=== PATIENT | female | born 1950 | race Caucasian/White ===

== ENCOUNTER 2017-10-08 14:50 | Emergency (ER) | payer MEDICARE, SELFPAY ==
[2017-10-08 14:51] VITALS: BP 157/80; PULSE 75; RESP 18; TEMP 36.4; O2SAT 99; BMI 34.1
--- NOTE | 2017-10-08 15:44 | ED.VISSUMM ---
- ER Visit Summary Date of Service: 10/08/17 Chief Complaint: I cannot hear out of my left ear History of Present Illness: The patient is a 67 F with 3 weeks of sinus drainage, rhinorrhea, and sinus pressure. 3 days ago she felt a pop in her right ear and has had decreased hearing since that time. No associated pain. No headaches, visual changes, slurred speech, or facial droop. She can still hear slightly from the right ear but it is markedly decreased from baseline. Physical Examination: Right tympanic membrane is somewhat bulging and there appears to be fluid behind it but I can still visualize landmarks. There is no mastoid tenderness. No evidence of cerumen impaction. She has a completely normal neurologic examination. Test Results: None performed Emergency Department Course and Treatment: Since she has had sinusitis symptoms for 3 weeks, I do think it is reasonable to treat her with an antimicrobial. I will also start her on a nasal spray. She was referred to ENT for close follow-up. This does not appear to represent an acute neurologic issue such as stroke or other acute process at this time. Treatment Plan: Oral antibiotics and nasal decongestant spray Disposition: Home stable condition Impression: Initial encounter maxillary sinusitis, initial encounter decreased hearing right ear This note was generated with [employer] dictation software. It may contain incorrect words, spelling, and punctuation that were not noted in review of the chart prior to signing ED Disposition - Plan for ED Patient: Chief Complaint: Ear Problem Instructions: Common Middle Ear Problems, Acute Sinusitis Prescriptions: Oxymetazoline 0.05% [Afrin (BKC)] 15 spray NASAL BID 3 Days #1 spray.btl Amoxicillin 500 mg PO TID #30 tablet Referrals: Donavan Gutierrez MD [STAFF PHYSICIAN] - As soon as possible
--- NOTE | 2017-10-08 15:49 | ED.DCSUM_ITS ---
- ER Visit Summary Date of Service: 10/08/17 Chief Complaint: I cannot hear out of my left ear History of Present Illness: The patient is a 67 F with 3 weeks of sinus drainage , rhinorrhea, and sinus pressure. 3 days ago she felt a pop in her right ear and has had decreased hearing since that time. No associated pain. No headaches, visual changes, slurred speech, or facial droop. She can still hear slightly from the right ear but it is markedly decreased from baseline. Physical Examination: Right tympanic membrane is somewhat bulging and there appears to be fluid behind it but I can still visualize landmarks. There is no mastoid tenderness. No evidence of cerumen impaction. She has a completely normal neurologic examination. Test Results: None performed Emergency Department Course and Treatment: Since she has had sinusitis symptoms for 3 weeks, I do think it is reasonable to treat her with an antimicrobial. I will also start her on a nasal spray. She was referred to ENT for close follow- up. This does not appear to represent an acute neurologic issue such as stroke or other acute process at this time. Treatment Plan: Oral antibiotics and nasal decongestant spray Disposition: Home stable condition Impression: Initial encounter maxillary sinusitis, initial encounter decreased hearing right ear This note was generated with [employer] dictation software. It may contain incorrect words, spelling, and punctuation that were not noted in review of the chart prior to signing ED Disposition - Plan for ED Patient: Chief Complaint: Ear Problem Instructions: Common Middle Ear Problems, Acute Sinusitis Prescriptions: Oxymetazoline 0.05% [Afrin (BKC)] 15 spray NASAL BID 3 Days #1 spray.btl Amoxicillin 500 mg PO TID #30 tablet Referrals: Donavan Gutierrez MD [STAFF PHYSICIAN] - As soon as possible
[2017-10-08 15:55] VITALS: BP 121/77; PULSE 61; RESP 15; O2SAT 98
== END 2017-10-08 15:57 | disposition home or self-care (01) ==
LOC: ED 15:50
PROVIDERS: Emergency Provider Emergency Medicine; Family Provider Family Medicine; PCP Family Medicine
DX: J32.0 Chronic maxillary sinusitis (principal); H91.92 Unspecified hearing loss, left ear; I10 Essential (primary) hypertension; Z79.84 Long term (current) use of oral hypoglycemic drugs; Z79.82 Long term (current) use of aspirin; Z79.899 Other long term (current) drug therapy; Z86.73 Personal history of transient ischemic attack (TIA), and cerebral infarction without residual deficits
CPT/HCPCS: 99282

== ENCOUNTER 2018-01-26 17:56 | Emergency (ER) | payer MEDICARE, SELFPAY ==
[2018-01-26 17:57] VITALS: BP 151/75; PULSE 93; RESP 18; TEMP 36.4; O2SAT 99; BMI 34.2
--- NOTE | 2018-01-26 18:44 | ED.VISSUMM ---
- ER Visit Summary Date of Service: 01/26/18 Chief Complaint: Sore throat History of Present Illness: The patient is a 68 F who presents with a sore throat. She has had this for 2 days. She has had associated sinus congestion. Throat is worse with swallowing. She states she has also had a cough is nonproductive. She denies fevers. She tried NyQuil which is not helping. Physical Examination: Vital signs are reviewed. HEENT exam reveals some posterior oropharyngeal erythema. There is no tonsillar swelling or exudates. No lymphadenopathy. He is regular rate and rhythm. Lungs clear to auscultation. Abdomen soft and nontender. Neurologic exam normal. Test Results: Strep negative Emergency Department Course and Treatment: Patient will be treated with Decadron here. Mucinex D for home. Likely viral in nature. We will follow-up with her PCP Treatment Plan: [] Disposition: Discharge Impression: Pharyngitis This note was generated with [employer] dictation software. It may contain incorrect words, spelling, and punctuation that were not noted in review of the chart prior to signing ED Disposition - Plan for ED Patient: Chief Complaint: Sore Throat Referrals: Dari Antunez [Primary Care Provider] -
--- NOTE | 2018-01-26 19:03 | ED.DEP ---
ED Disposition - Plan for ED Patient: Disposition: Home or Assisted Living Chief Complaint: Sore Throat Instructions: ED Pharyngitis Viral Prescriptions: Guaifenesin/Pseudoephedrne HCl [Mucinex D ER 1,200-120 mg Tab] 1 ea PO BID #14 tab.er.12h Referrals: Dari Antunez [Primary Care Provider] -
[2018-01-26 19:23] VITALS: BP 152/67; PULSE 69; RESP 17; O2SAT 98
== END 2018-01-26 19:25 | disposition home or self-care (01) ==
PROVIDERS: Emergency Provider Emergency Medicine; Family Provider Family Medicine; PCP Family Medicine
DX: J02.9 Acute pharyngitis, unspecified (principal); E11.9 Type 2 diabetes mellitus without complications; I10 Essential (primary) hypertension; Z79.84 Long term (current) use of oral hypoglycemic drugs; Z79.82 Long term (current) use of aspirin; Z79.899 Other long term (current) drug therapy; Z86.73 Personal history of transient ischemic attack (TIA), and cerebral infarction without residual deficits
CPT/HCPCS: 87880; 99283

== ENCOUNTER 2020-09-25 17:48 | Emergency (ER) | payer MEDICARE, SELFPAY ==
[2020-09-25 17:53] VITALS: BP 196/76; PULSE 77; PULSE 78; RESP 16; TEMP 35.5; O2SAT 97; BMI 36.3
--- NOTE | 2020-09-25 18:51 | EDS_ITS ---
HPI History of Present Illness Chief Complaint: Hypoglycemia Informant: patient and EMS Onset/Context/Timing Onset: Today Context: Gradual Onset Timing: - (Unclear) Quality: Fatigued Worsened by: Unknown Relieved by: Giving glucose by EMS Associated Symptoms Associated Symptoms: No other symptoms Narrative Narrative: Patient presents around 1800 to the ER, she states that she woke up early around 830 this morning, took her medications including her insulin for her diabetes and basically did not eat anything today, was feeling sleepy around 1130 or noon, and at some point was found difficult to arouse. EMS was called, checked her blood sugar it was very low, they gave her glucose and she woke up and now she feels fine except for being a little tired. Recent Illness/Hospitalization: No PFSH PFSH Medical History CVA (cerebral vascular accident) Diabetes Home Medications Antidepressant 1 07/15/16 [History Last Taken Unknown] Toujeo Solostar 50 units SQ DAILY 07/15/16 [History Last Taken 07/14/16] glimepiride 4 mg PO BID 07/15/16 [History Last Taken 07/14/16] krill oil 500 mg PO DAILY 07/15/16 [History Last Taken 07/14/16] metformin 500 mg PO BIDCM 07/15/16 [History Last Taken 07/14/16] aspirin 81 mg PO DAILY@0800 #30 tab.chew 07/16/16 [Rx Last Taken Unknown] aripiprazole 10 mg PO DAILY 09/25/20 [History Last Taken Unknown] cephalexin 500 mg PO Q12 #14 capsule 09/25/20 [Rx Last Taken Unknown] citalopram 40 mg PO DAILY 09/25/20 [History Last Taken Unknown] escitalopram oxalate 20 mg PO DAILY 09/25/20 [History Last Taken Unknown] estradiol 0.5 mg PO DAILY 09/25/20 [History Last Taken Unknown] insulin aspart U-100 [Novolog U-100 Insulin aspart] unit SUBCUT TIDCM 09/25/20 [History Last Taken Unknown] lisinopril 5 mg PO DAILY 09/25/20 [History Last Taken Unknown] simvastatin 40 mg PO DAILY 09/25/20 [History Last Taken Unknown] Allergy/AdvReac Type Severity Reaction Status Date / Time theophylline [From Dharmesh-Dur] Allergy Chest Verified 09/25/20 17:51 tightness Social History Smoking Status: Former smoker ROS ROS ED Constitutional Constitutional ED: Reports fatigue; Denies chills or fever(s) Eyes Eyes: Denies change in vision or diplopia ENT ENT ED: Denies rhinorrhea or sore throat Cardiovascular Cardiovascular: Denies chest pain or palpitations Respiratory/Chest Respiratory/Chest: Denies cough or dyspnea Gastrointestinal Gastrointestinal: Denies abdominal pain, diarrhea, nausea or vomiting Genitourinary Genitourinary ED: Reports dysuria, urinary frequency and other Details: Above urinary symptoms for about the past month ; Denies hematuria Musculoskeletal Musculoskeletal: Denies back pain or neck pain Integumentary Denies abscess or rash Neurologic Neurologic: Denies headache(s), paresthesias or weakness Psychiatric Psychiatric: Denies anxiety or suicidal thoughts EXAM Physical Exam Const Vital Signs: 09/25/20 17:53 09/25/20 18:06 Temperature 95.9 F L Temperature Source Temporal Pulse Rate 77 Respiratory Rate 16 Respiratory Effort Normal Respiratory Pattern Normal Blood Pressure 196/76 H Blood Pressure Mean 116 Pulse Ox 97 Oxygen Delivery Method Room Air Positive well nourished and well developed General Appearance ED: well developed and NAD HEENT Reports moist mucous membranes normocephalic and atraumatic Eyes PERRL and EOMs intact bilaterally Neck full ROM and supple Resp normal respiratory effort and clear to auscultation bilaterally Cardio regular rate, regular rhythm and no murmurs GI non-tender and non-distended Auscultation: normoactive bowel sounds Palpation: soft Back/Spine no CVA tenderness General Back: other FROM Extremity normal to inspection General Extremety ED: Negative for edema, pulses abnormal or tenderness General Extremity: Negative for edema or pulses abnormal Neuro oriented x3, CN's II-XII intact bilaterally and no sensory deficits noted Sensorium / Orientation: awake and alert Gait (Neuro): normal gait Motor Exam: strength 5/5 throughout Psych mental status grossly normal and thought process normal Skin no rashes or lesions noted and no wounds MDM MDM MDM Narrative Medical decision making narrative: Patient was given ham sandwich, we recheck sugar couple times it was in the 200s, she is feeling better. She wanted us to check a urinalysis because she was having some symptoms, it only shows 5-10 w richard blood cells and very mildly positive for leukocyte esterase. I offered her an antibiotic she prefers to try 1 because she has not in the past month since she had the symptoms. I do not necessarily think it was related to her episode today, and certainly she is not septic. She has chronic renal failure, she states dialysis was recommended to her but she refuses to undergo it. Her renal function is not that much lower than her baseline, so I gave her 500 cc of IV fluid and she feels well enough to go home. Lab Data Attestation: I reviewed the patient's lab results. Labs: Laboratory Results - last 24 hr 09/25/20 09/25/20 09/25/20 17:35 17:35 19:04 WBC 6.9 RBC 4.78 Hgb 12.7 Hct 41.3 MCV 86.4 MCH 26.6 L MCHC 30.8 L RDW Std Deviation 44.6 H RDW Coeff of Arsen 14.1 Plt Count 259 MPV 10.3 Immature Gran % (Auto) 0.400 Neut % (Auto) 73.4 H Lymph % (Auto) 18.7 L [place] % (Auto) 4.9 Eos % (Auto) 2.2 Baso % (Auto) 0.4 Absolute Neuts (auto) 5.1 Absolute Lymphs (auto) 1.29 Nucleated RBC % 0 Sodium 140 Potassium 3.5 Chloride 104 Carbon Dioxide 25.0 Anion Gap 11 BUN 36 H Creatinine 2.03 H Estim Creat Clear Calc 22.87 Est GFR (MDRD) Af Amer 31 L Est GFR (MDRD) Non-Af 26 L BUN/Creatinine Ratio 17.7 Glucose 73 L Calcium 9.6 Urine Color Urine Clarity Urine pH Ur Specific [place] Urine Protein Urine Glucose (UA) Urine Ketones Urine Occult Blood Urine Nitrite Urine Bilirubin Urine Urobilinogen Ur Leukocyte Esterase Urine RBC Urine WBC Ur Squamous Epith Cells Urine Bacteria Urine Mucus POC Glucose 170 H 09/25/20 09/25/20 19:06 21:10 WBC RBC Hgb Hct MCV MCH MCHC RDW Std Deviation RDW Coeff of [place] Plt Count MPV Immature Gran % (Auto) Neut % (Auto) Lymph % (Auto) [place] % (Auto) Eos % (Auto) Baso % (Auto) Absolute Neuts (auto) Absolute Lymphs (auto) Nucleated RBC % Sodium Potassium Chloride Carbon Dioxide Anion Gap BUN Creatinine Estim Creat Clear Calc Est GFR (MDRD) Af Amer Est GFR (MDRD) Non-Af BUN/Creatinine Ratio Glucose Calcium Urine Color Yellow Urine Clarity Clear Urine pH 6.0 Ur Specific [place] 1.015 Urine Protein 500 H Urine Glucose (UA) Normal Urine Ketones Negative Urine Occult Blood 25 H Urine Nitrite Negative Urine Bilirubin Negative Urine Urobilinogen Normal Ur Leukocyte Esterase 25 H Urine RBC 0 SEEN Urine WBC 5-10 SEEN Ur Squamous Epith Cells 0-5 SEEN Urine Bacteria 2+ Urine Mucus 0 SEEN POC Glucose 226 H Discharge Plan Triage Chief Complaint: Hypoglycemia ED Provider: Sal Patrick Dx/Rx/DC Orders Clinical Impression: Hypoglycemia associated with diabetes, Dysuria Instructions: ED Diabetic Insulin Reaction Prescriptions: New cephalexin 500 mg capsule 500 mg PO Q12 Qty: 14 RF: 0 No Action metformin 500 MG tablet 500 mg PO BIDCM RF: 0 glimepiride 4 MG tablet 4 mg PO BID RF: 0 krill oil 1 EACH capsule 500 mg PO DAILY RF: 0 Toujeo Solostar 50 units SQ DAILY RF: 0 Antidepressant 1 RF: 0 aspirin 81 MG tablet,chewable 81 mg PO DAILY@0800 Qty: 30 RF: 0 citalopram 40 mg Tablet 40 mg PO DAILY RF: 0 simvastatin 40 mg Tablet 40 mg PO DAILY RF: 0 insulin aspart U-100 [Novolog U-100 Insulin aspart] 100 unit/mL Solution SUBCUT TIDCM RF: 0 lisinopril 5 mg Tablet 5 mg PO DAILY RF: 0 estradiol 0.5 mg Tablet 0.5 mg PO DAILY RF: 0 escitalopram oxalate 20 mg Tablet 20 mg PO DAILY RF: 0 aripiprazole 10 mg Tablet 10 mg PO DAILY RF: 0 Primary Care Provider: Dari Antunez Referrals: Dari Antunez, DO [Primary Care Provider] - 3-5 Days if not improving Disposition Disposition: Home, self care
[2020-09-25 19:13] LABS: Mucous, Urine 0 SEEN /hpf (<or=2+); Red Blood Cells-Urine 0 SEEN /hpf (0-5)
[2020-09-25 19:14] LABS: Color, Urine Yellow (Yellow); Glucose, Dipstick Normal (Normal); Ketone-Dipstick Negative (Negative); Leukocyte Esterase-Dipstick 25 /ul (Negative); Nitrite-Dipstick Negative (Negative); Occult Blood-Urine 25 /ul (Negative); Protein-Dipstick 500 mg/dl (Negative); Specific Gravity, Urine 1.015 (1.002-1.030); Urine Bilirubin Dipstick Negative (Negative); Urine Clarity Clear (Clear); Urine Urobilinogen Normal (Normal)
[2020-09-25 19:16] LABS: Bedside Glucose 170 mg/dL (70-110)
[2020-09-25 19:17] LABS: Absolute Lymphocyte Count 1.29 X10^3/uL (0.83-4.51); Absolute Neutrophil Count 5.1 X10^3/uL (2.0-7.7); Basophil# 0.03 X10^3/uL; Basophil% 0.4 % (0-1); Eosinophil# 0.15 X10^3/uL; Eosinophils% 2.2 % (0-5); Hematocrit 41.3 % (37-47); Hemoglobin 12.7 g/dL (12.0-15.0); Lymphocyte # 1.29 X10^3/ul (0.83-4.51); Lymphocyte % 18.7 % (19-41); Mean Corp Hgb Conc 30.8 g/dL (32-36); Mean Corpuscular Hgb 26.6 pg (27.0-32.0); Mean Corpuscular Volume 86.4 fL (81-99); Mean Platelet Vol. 10.3 fl (6.2-12.0); Monocyte# 0.34 X10^3/uL; Monocyte% 4.9 % (0-10); NRBC Flagged by Analyzer 0 % (0-5); Neutrophil # 5.07 X10^3/uL (2.7-7.7); Neutrophil % 73.4 % (47-70); Platelet Count 259 K/mm3 (150-450); RBC Distribution Width CV 14.1 % (11.6-14.6); RBC Distribution Width SD 44.6 fl (35.1-43.9); Red Blood Count 4.78 M/mm3 (4.2-5.4); White Blood Count 6.9 K/mm3 (4.4-11.0)
[2020-09-25 19:22] LABS: Bacteria 2+ /hpf (None Seen); Squamous Epithelial Cells - UA 0-5 SEEN /hpf (5-10); White Blood Cells 5-10 SEEN /hpf (0-5)
[2020-09-25 19:28] LABS: Anion Gap 11 (5-15); BUN 36 mg/dL (7-18); BUN/Creat Ratio 17.7 RATIO (10-20); Calcium,Total 9.6 mg/dL (8.5-10.1); Chloride 104 mmol/L (98-107); Creatinine, Serum 2.03 mg/dL (0.55-1.02); EST Glomerular Filtration Rate 26 mL/min (>60); Est Glom Filt Rate - Afr Amer 31 mL/min (>60); Estimated Creatinine Clearance 22.87 ml/min; Glucose 73 mg/dL (74-106); Potassium 3.5 mmol/L (3.5-5.1); Sodium Level 140 mmol/L (136-145)
[2020-09-25 21:21] LABS: Bedside Glucose 226 mg/dL (70-110)
[2020-09-25 22:02] VITALS: BP 193/75; PULSE 71; RESP 16; O2SAT 100
[2020-09-25 22:03] VITALS: BP 193/75; PULSE 71; RESP 16; O2SAT 100
[2020-09-25 22:04] VITALS: BP 193/75; PULSE 71; RESP 16; O2SAT 100
[2020-09-25 22:14] VITALS: BP 193/75; PULSE 71; RESP 16; O2SAT 100
== END 2020-09-25 22:27 | disposition home or self-care (01) ==
PROVIDERS: Emergency Provider Emergency Medicine; PCP Family Medicine
DX: E11.649 Type 2 diabetes mellitus with hypoglycemia without coma (principal); E11.22 Type 2 diabetes mellitus with diabetic chronic kidney disease; N18.9 Chronic kidney disease, unspecified; R30.0 Dysuria; Z79.4 Long term (current) use of insulin; Z79.82 Long term (current) use of aspirin; Z87.891 Personal history of nicotine dependence; Z86.73 Personal history of transient ischemic attack (TIA), and cerebral infarction without residual deficits
CPT/HCPCS: 80048; 81001; 82962; 85025; 87077; 87086; 87088; 87186; 96360; 99285; J7030; A4216

== ENCOUNTER 2021-08-03 03:13 | Emergency (ER) | payer MEDICARE, SELFPAY ==
[2021-08-03] VITALS (23 sets, daily range): BP systolic 117–233; BP diastolic 64–132; PULSE 94–137; RESP 18–20; TEMP 36.6–39; O2SAT 92–100; BMI 34.1
--- NOTE | 2021-08-03 03:15 | EKG12_ITS ---
Test Reason : STROKE Blood Pressure : / mmHG Vent. Rate : 094 BPM Atrial Rate : 094 BPM P-R Int : 228 ms QRS Dur : 098 ms QT Int : 366 ms P-R-T Axes : 034 031 040 degrees QTc Int : 457 ms Poor data quality, interpretation may be adversely affected Sinus rhythm with 1st degree A-V block Otherwise normal ECG Confirmed by KATINA MCDONALD, MARIBELL ([id number]), state editor SANGEETA ESCUDERO ([id number]) on 08/06/2021 10:57:05 AM Referred By: TL Confirmed By:MARIBELL AMBRIZ MD
--- NOTE | 2021-08-03 03:15 | CT_ITS ---
We are attempting to reach an attending provider to discuss findings. An addendum with communication details will be sent when the communication is complete. EXAM: CT Head Without Intravenous Contrast CLINICAL INDICATION: 71 years old, Female; Neuro deficit, acute, stroke suspected TECHNIQUE: Multiple axial images were obtained of the head without intravenous contrast. This CT exam was performed using one or more of the following dose reduction techniques: automated exposure control, adjustment of the mA and/or kV according to patient size, and/or use of iterative reconstruction technique. This report was created using [employer] report [employer] technology. COMPARISON: CT Head dated 07/15/2016 FINDINGS: Brain and extra-axial spaces: Areas of decreased attenuation in the deep cerebral white matter are consistent with small vessel ischemic/degenerative changes. The cerebral and cerebellar sulci are prominent consistent with brain atrophy. No intra- or extra-axial hemorrhage. No intracranial mass or mass effect. Basal cisterns are patent. Bones/joints: Unremarkable. No discrete lytic or blastic abnormalities. Vasculature: Atherosclerotic disease. Sinuses: Mucosal thickening right maxillary sinus. Mastoid air cells: Unremarkable. Clear. Orbits: Visualized globes, extraocular muscles, optic nerves and retrobulbar fat appear unremarkable. CT/STROKE Brain/Head without Cont IMPRESSION: 1. Small vessel ischemic/degenerative changes. 2. Cerebral and cerebellar atrophy. ASSESSMENT: ASPECTS ([place] Stroke Program Early CT Score) is 10. Electronically Signed: Moe Boles MD at 3:56 EST ,
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
--- NOTE | 2021-08-03 03:21 | ED.RN ---
blood glucose taken >600. dr. quiñonez notified.
--- NOTE | 2021-08-03 03:22 | EDS_ITS ---
HPI History of Present Illness Chief Complaint: Neuro S/Sx Informant: EMS Onset/Context/Timing Onset: Today Narrative Narrative: Presents by EMS for prehospital stroke activation. Reported found unresponsive on the ground on arrival by reported last normal 2 AM. Patient history of diabetes along with mini stroke history. Reported by EMS there is no deficits. Reported blood pressure was elevated in the 260s by EMS on arrival to the the emergency department. No hypertension history on her records does note history of CKD and diabetes. She is on lisinopril 5 mg likely for renal protection. Unclear on her compliance with her diabetic medication. Blood glucose was 580 by EMS. Reported normally alert and oriented x3. No family currently present. EMS concern of gaze to the right and posturing. [facility] Medical History (Updated 08/03/21 @ 22:[address] Ellis Quinones DO) CVA (cerebral vascular accident) Diabetes Hyperlipemia Kidney disease Home Medications Antidepressant 1 07/15/16 [History Last Taken Unknown] Toujeo Solostar 50 units SQ DAILY 07/15/16 [History Last Taken 07/14/16] glimepiride 4 mg PO BID 07/15/16 [History Last Taken 07/14/16] krill oil 500 mg PO DAILY 07/15/16 [History Last Taken 07/14/16] metformin 500 mg PO BIDCM 07/15/16 [History Last Taken 07/14/16] aspirin 81 mg PO DAILY@0800 #30 tab.chew 07/16/16 [Rx Last Taken Unknown] aripiprazole 10 mg PO DAILY 09/25/20 [History Last Taken Unknown] cephalexin 500 mg PO Q12 #14 capsule 09/25/20 [Rx Last Taken Unknown] citalopram 40 mg PO DAILY 09/25/20 [History Last Taken Unknown] escitalopram oxalate 20 mg PO DAILY 09/25/20 [History Last Taken Unknown] estradiol 0.5 mg PO DAILY 09/25/20 [History Last Taken Unknown] insulin aspart U-100 [Novolog U-100 Insulin aspart] unit SUBCUT TIDCM 09/25/20 [History Last Taken Unknown] lisinopril 5 mg PO DAILY 09/25/20 [History Last Taken Unknown] simvastatin 40 mg PO DAILY 09/25/20 [History Last Taken Unknown] Allergy/AdvReac Type Severity Reaction Status Date / Time theophylline [From Dharmesh-Dur] Allergy Chest Verified 09/25/20 17:51 tightness Social History Smoking Status: Former smoker ROS ROS ED Review of Systems ROS Unobtainable: due to encephalopathy and due to mental status EXAM Physical Exam Const Vital Signs: 08/03/21 03:14 08/03/21 03:22 08/03/21 03:25 Temperature 98 F Temperature Source Temporal Pulse Rate 122 H 114 H Respiratory Rate 20 H 20 H Blood Pressure 150/132 H 233/116 H Blood Pressure Mean 138 155 Blood Pressure Source Blood Pressure Position Blood Pressure Location Pulse Ox 100 92 Oxygen Delivery Method Non-Rebreather Non-Rebreather Non-Rebreather Oxygen Flow Rate (L/min) 15 15 15 08/03/21 03:45 08/03/21 03:49 08/03/21 04:16 Temperature Temperature Source Pulse Rate 114 H 94 Respiratory Rate 18 18 Blood Pressure 227/109 H 178/95 H 139/99 H Blood Pressure Mean 148 122 112 Blood Pressure Source Blood Pressure Position Blood Pressure Location Pulse Ox 95 98 Oxygen Delivery Method Nasal Cannula Nasal Cannula Oxygen Flow Rate (L/min) 2 2 08/03/21 04:20 08/03/21 04:23 08/03/21 04:35 Temperature Temperature Source Pulse Rate 99 100 Respiratory Rate 18 20 H Blood Pressure 139/99 H 139/99 H 200/97 H Blood Pressure Mean 112 131 Blood Pressure Source Monitor Monitor Blood Pressure Position Supine Blood Pressure Location Left Arm Pulse Ox 96 96 Oxygen Delivery Method Nasal Cannula Nasal Cannula Oxygen Flow Rate (L/min) 2 2 08/03/21 04:50 08/03/21 04:54 08/03/21 05:05 Temperature 102.2 F H Temperature Source Core Pulse Rate 98 98 96 Respiratory Rate 20 H 20 H Blood Pressure 202/91 H 202/91 H 183/98 H Blood Pressure Mean 128 128 126 Blood Pressure Source Monitor Monitor Blood Pressure Position Blood Pressure Location Pulse Ox 97 98 Oxygen Delivery Method Nasal Cannula Nasal Cannula Oxygen Flow Rate (L/min) 2 2 08/03/21 05:09 08/03/21 05:16 08/03/21 05:20 Temperature Temperature Source Pulse Rate 100 100 98 Respiratory Rate 20 H 20 H Blood Pressure 162/109 H 160/83 H 160/83 H Blood Pressure Mean 126 108 108 Blood Pressure Source Monitor Blood Pressure Position Blood Pressure Location Pulse Ox 99 99 99 Oxygen Delivery Method Nasal Cannula Nasal Cannula Nasal Cannula Oxygen Flow Rate (L/min) 2 2 2 08/03/21 05:35 08/03/21 05:41 08/03/21 05:50 Temperature 99.3 F H Temperature Source Core Pulse Rate 98 102 H 100 Respiratory Rate 20 H 20 H 20 H Blood Pressure 117/65 117/65 140/83 H Blood Pressure Mean 82 82 102 Blood Pressure Source Monitor Monitor Blood Pressure Position Supine Blood Pressure Location Left Arm Pulse Ox 99 99 99 Oxygen Delivery Method Nasal Cannula Nasal Cannula Oxygen Flow Rate (L/min) 2 2 08/03/21 06:05 08/03/21 06:20 08/03/21 06:35 Temperature 101.8 F H Temperature Source Axillary Pulse Rate 101 H 137 H 102 H Respiratory Rate 18 20 H Blood Pressure 147/104 H 137/76 H 132/66 H Blood Pressure Mean 118 96 88 Blood Pressure Source Monitor Monitor Blood Pressure Position Supine Supine Blood Pressure Location Pulse Ox 98 99 99 Oxygen Delivery Method Nasal Cannula Nasal Cannula Nasal Cannula Oxygen Flow Rate (L/min) 2 2 2 08/03/21 06:50 08/03/21 07:05 08/03/21 07:29 Temperature Temperature Source Pulse Rate 99 101 H Respiratory Rate 18 Blood Pressure 147/64 H 162/72 H 162/72 H Blood Pressure Mean 91 102 102 Blood Pressure Source Monitor Blood Pressure Position Blood Pressure Location Pulse Ox 98 99 Oxygen Delivery Method Nasal Cannula Oxygen Flow Rate (L/min) 2 Positive well nourished and well developed Constitutional Narrative: Patient unresponsive moving all 4 extremities. Patient unable to follow commands. Brought in on a vent mask oxygen there was some secretions around her lips. General Appearance ED: well developed HEENT Reports moist mucous membranes normocephalic and atraumatic Eyes conjunctivae normal Eyes Narrative: Positive corneal reflex bilaterally. No gaze, patient would look left and right eyes crossing midline. General Eye ED: Yes normal appearance of both eyes Neck no lymphadenopathy and supple Chest Wall Chest: Negative for tenderness Resp normal respiratory effort and normal air movement Effort and Inspection: symmetric chest movement; Negative for respiratory distress Cardio regular rate, regular rhythm and no murmurs Rate: regular rate and tachycardic Peripheral Pulses: pulses 2+ throughout GI normal to inspection, nondistended, normoactive bowel sounds and non-tender Palpation: Negative for guarding or rebound tenderness present Back/Spine no thoracic nor lumbar tenderness Extremity normal to inspection General Extremety ED: Negative for edema or tenderness General Extremity: Negative for edema Neuro Neuro Narrative: Patient confused, withdraws to pain in all 4 extremities. Unable to perform NIH due to patient unable to follow commands and current condition. Babinski is negative bilaterally. Sensorium / Orientation: awake Skin no rashes or lesions noted and no wounds STROKE Vital Signs/Narrative: Vital Signs Temp Pulse Resp BP Pulse Ox 08/03/21 06:20 137 H 18 137/76 H 99 08/03/21 06:05 101 H 147/104 H 98 08/03/21 05:50 100 20 H 140/83 H 99 08/03/21 05:41 102 H 20 H 117/65 99 08/03/21 05:35 99.3 F H 98 20 H 117/65 99 08/03/21 05:20 98 160/83 H 99 08/03/21 05:16 100 20 H 160/83 H 99 08/03/21 05:09 100 20 H 162/109 H 99 08/03/21 05:05 102.2 F H 96 20 H 183/98 H 98 08/03/21 04:54 98 202/91 H 08/03/21 04:50 98 20 H 202/91 H 97 08/03/21 04:35 100 20 H 200/97 H 96 08/03/21 04:23 139/99 H 08/03/21 04:20 99 18 139/99 H 96 08/03/21 04:16 94 18 139/99 H 98 08/03/21 03:49 178/95 H 08/03/21 03:45 114 H 18 227/109 H 95 08/03/21 03:25 114 H 20 H 233/116 H 92 08/03/21 03:14 98 F 122 H 20 H 150/132 H 100 Inital Vital Signs reviewed: Yes MDM MDM MDM Narrative Medical decision making narrative: Patient's arrival unresponsive protecting her airway. Tachycardic on the monitor. Blood glucose was greater than 600. Initial blood pressure 150 systolic recheck was 240 systolic, stroke orders were ordered, CT head will be obtained to rule out intracranial bleed with her pressures. With her confusion moving all 4 extremities, lower suspicion of acute large thrombus, more likely metabolic encephalopathy with her glucose. She was given fluids, DKA labs ordered. Also VBG for evaluation of her pH levels. Patient kept moving around in the bed unable to keep still, will give Ativan, soft restraints in order to safely obtain CT scan studies. 0355: Discussed with radiology CT scan notes small vessel disease, no bleeds. Results of blood work does note hyperglycemia with glucose of 1084. Gap was normal at 11. Sodium 120 however corrected is normal at 136. Creatinine 2.85 GFR of 17. Last creatinine was 2 GFR of 27. White count 6.7 hemoglobin 12. Small acetones. However with a normal gap less likely DKA likely HHS at this time. Blood pressure improved without intervention, presented systolic 233, down to 178. This time concerns for metabolic encephalopathy possible hypertensive encephalopathy from initial evaluation. Goal blood pressure for first 24 hours are met at this time without intervention. We will continue fluids. Guillen catheter with urine for evaluation due to her altered mental status. With worsening CKD, will check a CPK. Awaiting neurology evaluation. 0410: Stroke neurologist, Dr. Calero on the monitor on discussion and evaluation the patient. He reports possible basilar thrombus can cause patient's presentation. I did discuss the metabolic findings of the patient. I discussed patient's creatinine at 2.85 with a GFR of 17. He did recommend TPA due to acute onset of symptoms and his concerns. We discussed concerns for worsening kidneys if we obtained a CT angiogram for thrombus evaluation. He states we will hold off on the scan and to transfer to [facility] ED as a level 1 for their continued management after TPA. Blood pressure was elevated in the room 170s with diastolic of 140s. Will give blood pressure medicines to get diastolic below 110 in order to give TPA. Eber abreu eventually started by nursing. 0420: Family here at bedside, significant other and granddaughter Angie who is the only living relative. Her mother was the only child who in 2011. States her grandmother has had difficulty since then. Her sick mother does not know her compliance with medications however granddaughter states she would not be surprised that she stopped taking it. She has expressed her wishes to her that she would not want heroic measures with CPR or intubations. However her granddaughter was in agreement to giving TPA understanding the risks with hemorrhage to try to help with patient's current condition. She did bring up DNR status to be filled out for her grandmother. This will be filled out. Chest x-ray reviewed by myself and read by radiology shows no acute process. 0445: Reported by nursing temperature went up to 101.2 from 98. TPA is running. Chest x-ray negative. Urine is coming back glucose slight occult blood, negative nitrites and leukocytes. We will add blood cultures lactic acid, will give rectal suppository. With her hyperglycemia which HHS, will start insulin drip 0.05 units/kg/h. We will continue normal saline. Reported by nursing there is no flight availability due to weather, will plan to transport mobile under critical care. 0615: Patient lactic acid returned at 2.8. With fever in the ED unclear on potential infection source. Blood cultures are pending. Will start Zosyn and vancomycin for broad coverage. Family updated. 0700: Patient transferred without any complications. Lab Data Attestation: I reviewed the patient's lab results. Labs: Laboratory Results - last 24 hr 08/03/21 08/03/21 08/03/21 03:15 03:15 03:15 WBC 6.7 RBC 4.37 Hgb 12.1 Hct 34.8 L MCV 79.6 L MCH 27.7 MCHC 34.8 RDW Std Deviation 37.9 RDW Coeff of Arsen 13.2 Plt Count 216 MPV 10.4 Immature Gran % (Auto) 0.500 Neut % (Auto) 84.5 H Lymph % (Auto) 11.0 L Tift % (Auto) 3.2 Eos % (Auto) 0.3 Baso % (Auto) 0.5 Absolute Neuts (auto) 5.6 Absolute Lymphs (auto) 0.73 L Nucleated RBC % 0 PT 13.3 INR 1.1 APTT 23.8 L Sodium 120 L Potassium 4.9 Chloride 82 L Carbon Dioxide 27.0 Anion Gap 11 BUN 29 H Creatinine 2.85 H Estim Creat Clear Calc 16.06 Est GFR (MDRD) Af Amer 21 L Est GFR (MDRD) Non-Af 17 L BUN/Creatinine Ratio 10.2 Glucose 1084 H* Lactic Acid Calcium 9.0 Total Creatine Kinase Troponin I High Sens 27 Urine Color Urine Clarity Urine pH Ur Specific [place] Urine Protein Urine Glucose (UA) Urine Ketones Urine Occult Blood Urine Nitrite Urine Bilirubin Urine Urobilinogen Ur Leukocyte Esterase Urine RBC Urine WBC Ur Squamous Epith Cells Urine Bacteria Urine Mucus Acetone Level POC Glucose 08/03/21 08/03/21 08/03/21 03:15 03:15 03:19 WBC RBC Hgb Hct MCV MCH MCHC RDW Std Deviation RDW Coeff of Arsen Plt Count MPV Immature Gran % (Auto) Neut % (Auto) Lymph % (Auto) Tift % (Auto) Eos % (Auto) Baso % (Auto) Absolute Neuts (auto) Absolute Lymphs (auto) Nucleated RBC % PT INR APTT Sodium Potassium Chloride Carbon Dioxide Anion Gap BUN Creatinine Estim Creat Clear Calc Est GFR (MDRD) Af Amer Est GFR (MDRD) Non-Af BUN/Creatinine Ratio Glucose Lactic Acid Calcium Total Creatine Kinase 56 Troponin I High Sens Urine Color Urine Clarity Urine pH Ur Specific [place] Urine Protein Urine Glucose (UA) Urine Ketones Urine Occult Blood Urine Nitrite Urine Bilirubin Urine Urobilinogen Ur Leukocyte Esterase Urine RBC Urine WBC Ur Squamous Epith Cells Urine Bacteria Urine Mucus Acetone Level SMALL H POC Glucose > 500 H* 08/03/21 08/03/21 08/03/21 04:26 05:00 06:20 WBC RBC Hgb Hct MCV MCH MCHC RDW Std Deviation RDW Coeff of Arsen Plt Count MPV Immature Gran % (Auto) Neut % (Auto) Lymph % (Auto) Tift % (Auto) Eos % (Auto) Baso % (Auto) Absolute Neuts (auto) Absolute Lymphs (auto) Nucleated RBC % PT INR APTT Sodium Potassium Chloride Carbon Dioxide Anion Gap BUN Creatinine Estim Creat Clear Calc Est GFR (MDRD) Af Amer Est GFR (MDRD) Non-Af BUN/Creatinine Ratio Glucose Lactic Acid 2.8 H* Calcium Total Creatine Kinase Troponin I High Sens Urine Color Straw Urine Clarity Clear Urine pH 7.0 Ur Specific [place] 1.010 Urine Protein 100 H Urine Glucose (UA) 1000 H Urine Ketones 15 H Urine Occult Blood 25 H Urine Nitrite Negative Urine Bilirubin Negative Urine Urobilinogen Normal Ur Leukocyte Esterase Negative Urine RBC 0-5 SEEN Urine WBC 0 SEEN Ur Squamous Epith Cells 0 SEEN Urine Bacteria 0 SEEN Urine Mucus 0 SEEN Acetone Level POC Glucose > 500 H* ABG Data ABG results: ABG 08/03/21 03:29 Specimen Type REBECA VBG pH 7.31 L VBG pO2 33 VBG HCO3 26 VBG Total CO2 28 VBG O2 Sat (Calc) 57 VBG Base Excess 0 POC Mix VBG pCO2 Pt Tmp 51.8 H Radiography Diagnostic Testing: Clinical Impression(s) from Imaging Studies Brain CT 08/03/21 03:15 IMPRESSION: 1. Small vessel ischemic/degenerative changes. 2. Cerebral and cerebellar atrophy. ASSESSMENT: ASPECTS ([place] Stroke Program Early CT Score) is 10. Electronically Signed: Moe Boles MD at 3:56 EST , ADDENDUM: 08/03/21 0408 IMPRESSION: 1. Small vessel ischemic/degenerative changes. 2. Cerebral and cerebellar atrophy. ASSESSMENT: ASPECTS ([place] Stroke Program Early CT Score) is 10. N.B. : The above Results were Read Back by Moe Boles MD to Dr. Stacie MD, and understanding confirmed on 08/03/2021 04:01:15 (ET). Electronically Signed: Moe Boles MD at 3:56 EST , Chest X-Ray 08/03/21 03:40 IMPRESSION: No radiographic evidence of acute cardiopulmonary disease. Electronically Signed: Moe Boles MD at 4:11 EST , EKG Initial EKG: Attestation: I personally reviewed and interpreted this EKG as follows: Comments: Sinus rhythm 94, no ST or T wave changes. Critical Care Time Critical Care Time: Yes Critical care time (excluding procedures): 30-74 minutes, Discussing w/Patient &/or Family/Correctional Officer Lieutenant, Discussing w/Consultants, Arranging Admission or Transfer, Performing Direct Patient Care at Bedside and - (50 minutes) Discharge Plan Triage Chief Complaint: Neuro S/Sx ED Provider: Ellis Quinones Dx/Rx/DC Orders Clinical Impression: Altered mental status, Diabetes mellitus, type II, CKD (chronic kidney disease) stage 3, GFR 30-59 ml/min, CVA (cerebral vascular accident), Hyperosmolar hyperglycemic state (HHS), Received intravenous tissue plasminogen activator (tPA) in emergency department, Acute hyponatremia, DUC (acute kidney injury), DNR no code (do not resuscitate), Fever, Hypertensive emergency Prescriptions: No Action metformin 500 MG tablet 500 mg PO BIDCM RF: 0 glimepiride 4 MG tablet 4 mg PO BID RF: 0 krill oil 1 EACH capsule 500 mg PO DAILY RF: 0 Toujeo Solostar 50 units SQ DAILY RF: 0 Antidepressant 1 RF: 0 aspirin 81 MG tablet,chewable 81 mg PO DAILY@0800 Qty: 30 RF: 0 citalopram 40 mg Tablet 40 mg PO DAILY RF: 0 simvastatin 40 mg Tablet 40 mg PO DAILY RF: 0 insulin aspart U-100 [Novolog U-100 Insulin aspart] 100 unit/mL Solution SUBCUT TIDCM RF: 0 lisinopril 5 mg Tablet 5 mg PO DAILY RF: 0 estradiol 0.5 mg Tablet 0.5 mg PO DAILY RF: 0 escitalopram oxalate 20 mg Tablet 20 mg PO DAILY RF: 0 aripiprazole 10 mg Tablet 10 mg PO DAILY RF: 0 cephalexin 500 mg capsule 500 mg PO Q12 Qty: 14 RF: 0 Primary Care Provider: Care Physician,No Primary Referrals: Care Physician,No Primary [Primary Care Provider] - Disposition Disposition: Transfer to Another Type HCF Discharge Location: [facility] Discharge Date/Time: 08/03/21 07:35
[2021-08-03 03:25] LABS: Absolute Lymphocyte Count 0.73 X10^3/uL (0.83-4.51); Absolute Neutrophil Count 5.6 X10^3/uL (2.0-7.7); Basophil# 0.03 X10^3/uL; Basophil% 0.5 % (0-1); Eosinophil# 0.02 X10^3/uL; Eosinophils% 0.3 % (0-5); Hematocrit 34.8 % (37-47); Hemoglobin 12.1 g/dL (12.0-15.0); Lymphocyte # 0.73 X10^3/ul (0.83-4.51); Mean Corp Hgb Conc 34.8 g/dL (32-36); Mean Corpuscular Hgb 27.7 pg (27.0-32.0); Mean Corpuscular Volume 79.6 fL (81-99); Mean Platelet Vol. 10.4 fl (6.2-12.0); Monocyte# 0.21 X10^3/uL; Monocyte% 3.2 % (0-10); NRBC Flagged by Analyzer 0 % (0-5); Neutrophil # 5.63 X10^3/uL (2.7-7.7); Neutrophil % 84.5 % (47-70); Platelet Count 216 K/mm3 (150-450); RBC Distribution Width CV 13.2 % (11.6-14.6); RBC Distribution Width SD 37.9 fl (35.1-43.9); Red Blood Count 4.37 M/mm3 (4.2-5.4); White Blood Count 6.7 K/mm3 (4.4-11.0)
--- NOTE | 2021-08-03 03:29 | ED.RN ---
UNABLE TO PERFORM NIH AT THIS TIME. PATIENT MOVING ALL EXTREMITIES BUT UNABLE TO FOLLOW COMMANDS. PATIENT COMBATIVE.
[2021-08-03] MEDS: LORazepam 2 MG/ML Syringe 1 MG IV (03:32)
[2021-08-03 03:36] LABS: Bedside Glucose > 500 mg/dL (74-106)
[2021-08-03 03:36] LABS: Blood Gas Specimen Type VEN; VBG BASE EXCESS 0 mmol/L (-1.0-3.5); VBG Bicarbonate 26 mmol/L (22-26); VBG PO2 33 mmHg (25-40); VBG SO2 57 % (50-70); VBG TCO2 28 mmol/L (23-33); VBG pCO2 51.8 mmHg (41-51); VBG pH 7.31 (7.32-7.42)
--- NOTE | 2021-08-03 03:40 | RAD_ITS ---
EXAM: XR Chest, 1 View CLINICAL INDICATION: 71 years old, Female; Neuro deficit, acute, stroke suspected TECHNIQUE: Frontal view of the chest. This report was created using [employer] report generation technology. COMPARISON: None. FINDINGS: Lungs and pleural spaces: Unremarkable. No consolidation or edema. No pneumothorax. No effusion. Heart: Unremarkable. Cardiac silhouette not enlarged. Mediastinum: Central airways and mediastinal contour are unremarkable. Bones/joints: Unremarkable. Soft tissues: Unremarkable. RAD/Chest 1 View IMPRESSION: No radiographic evidence of acute cardiopulmonary disease. Electronically Signed: Moe Boles MD at 4:11 EST ,
[2021-08-03 03:45] LABS: International Normalized Ratio 1.1; Prothrombin Time (Protime)PT. 13.3 SECONDS (11.7-14.9)
[2021-08-03 03:46] LABS: Partial Thromboplast Time 23.8 Seconds (24.1-36.2)
[2021-08-03 03:48] LABS: Anion Gap 11 (5-15); BUN 29 mg/dL (7-18); BUN/Creat Ratio 10.2 RATIO (10-20); Chloride 82 mmol/L (98-107); Creatinine, Serum 2.85 mg/dL (0.55-1.02); EST Glomerular Filtration Rate 17 mL/min (>60); Est Glom Filt Rate - Afr Amer 21 mL/min (>60); Estimated Creatinine Clearance 16.06 ml/min; Glucose 1084 mg/dL (74-106); Potassium 4.9 mmol/L (3.5-5.1); Sodium Level 120 mmol/L (136-145); Troponin-I HS 27 pg/mL (3.0-54.0)
[2021-08-03] MEDS: 0.9% Normal Saline 1,000 ML 999 ML IV (04:02)
[2021-08-03] MEDS: Labetalol (Prefilled) 20 MG/4 ML IV (04:14)
[2021-08-03 04:16] LABS: CPK Total, Creatine Kinase 56 U/L (26-192)
--- NOTE | 2021-08-03 04:20 | ED.RN ---
PATIENT UNRESPONSIVE AT THIS POINT. UNABLE TO FOLLOW COMMANDS. UNABLE TO PERFORM NIH.
[2021-08-03 04:35] LABS: Bacteria 0 SEEN /hpf (None Seen); Mucous, Urine 0 SEEN /hpf (<or=2+); Squamous Epithelial Cells - UA 0 SEEN /hpf (5-10); White Blood Cells 0 SEEN /hpf (0-5)
--- NOTE | 2021-08-03 04:35 | ED.RN ---
UNABLE TO GET ACCURATE BP. PATIENT WITH TREMORS AND MOVING ARM, UNABLE TO FOLLOW COMMANDS. WILL CONTINUE TO MONITOR.
[2021-08-03 04:36] LABS: Color, Urine Straw (Yellow); Glucose, Dipstick 1000 mg/dl (Normal); Ketone-Dipstick 15 mg/dl (Negative); Leukocyte Esterase-Dipstick Negative /ul (Negative); Nitrite-Dipstick Negative (Negative); Occult Blood-Urine 25 /ul (Negative); Protein-Dipstick 100 mg/dl (Negative); Urine Bilirubin Dipstick Negative (Negative); Urine Clarity Clear (Clear); Urine Urobilinogen Normal (Normal)
--- NOTE | 2021-08-03 04:40 | NURSING ---
CALLED [facility] ASKING FOR A HELICOPTER AND WAS DECLINED DUE TO WEATHER. ASKED ABOUT [employer] BUT WAS INFORMED THEY WHERE UNAVAILABLE. CALLED PHYSICIANS WAS GIVEN AN ETA OF 60-90 MINUTES SO I ASKED TO TRY AND OUT SOURCE.
[2021-08-03 04:44] LABS: Red Blood Cells-Urine 0-5 SEEN /hpf (0-5)
[2021-08-03] MEDS: Nicardipine HCl-0.9% Sod Chlor 20 MG/200 ML IV.SOLN 50 MG IV (04:54)
--- NOTE | 2021-08-03 04:55 | ED.RN ---
PATIENT CONTINUES TO HAVE ELEVATED BP OUTSIDE TPA PARAMETERS WITH BEST EFFORTS TO HAVE PATIENT HOLD ARM STILL. TPA PAUSED AT THIS TIME TO FIX BP.
--- NOTE | 2021-08-03 04:55 | ED.RN ---
TPA PAUSED DUE TO BLOOD PRESSURE. CARDENE DRIP STARTED PER PROTOCOL.
[2021-08-03] MEDS: Acetaminophen 650 MG Suppository RC (05:12)
--- NOTE | 2021-08-03 05:16 | ED.RN ---
TPA RESTARTED, BP WITHIN LIMITS.
[2021-08-03] MEDS: 0.9% Normal Saline 1,000 ML 150 ML IV (05:21)
--- NOTE | 2021-08-03 05:41 | ED.RN ---
[facility] transfer center made aware of patient condition and update on transport
[2021-08-03 05:53] LABS: Lactic Acid 2.8 mmol/L (0.4-1.9)
--- NOTE | 2021-08-03 06:20 | ED.RN ---
BLOOD GLUCOSE CHECKED READING >600.
[2021-08-03 07:06] LABS: Bedside Glucose > 500 mg/dL (74-106)
[2021-08-03 09:35] LABS: Reflex Lactate? Y
== END 2021-08-03 07:35 | disposition other institution (70) ==
PROVIDERS: Emergency Provider Emergency Medicine; Visit Provider Emergency Medicine
DX: I16.1 Hypertensive emergency (principal); N17.9 Acute kidney failure, unspecified; E11.22 Type 2 diabetes mellitus with diabetic chronic kidney disease; E11.65 Type 2 diabetes mellitus with hyperglycemia; E11.00 Type 2 diabetes mellitus with hyperosmolarity without nonketotic hyperglycemic-hyperosmolar coma (NKHHC); I63.9 Cerebral infarction, unspecified; Z79.4 Long term (current) use of insulin; N18.30 Chronic kidney disease, stage 3 unspecified; R29.810 Facial weakness; R29.710 NIHSS score 10; E78.5 Hyperlipidemia, unspecified; E87.1 Hypo-osmolality and hyponatremia; Z66 Do not resuscitate; Z79.82 Long term (current) use of aspirin; Z79.84 Long term (current) use of oral hypoglycemic drugs; Z79.899 Other long term (current) drug therapy; Z86.73 Personal history of transient ischemic attack (TIA), and cerebral infarction without residual deficits; Z87.891 Personal history of nicotine dependence
CPT/HCPCS: 96368; 51702; 70450; 71045; 80048; 81001; 82009; 82550; 82803; 82962; 83605; 84484; 85025; 85610; 85730; 87040; 87811; 93005; 96361; 96365; 96366; 96367; 96375; 99285; J2997; J7030; J7040; A4216